=== PATIENT | female | born 1950 | race Caucasian/White ===

== ENCOUNTER 2017-05-21 17:33 | Emergency (ER) | payer MEDICARE ==
[2017-05-21 17:44] VITALS: BP 145/81
--- NOTE | 2017-05-21 18:03 | UC ---
Eye Complaint HPI - HPI Summary HPI Summary: Bruising and swelling this morning starting after 7 AM. - History of Current Complaint Chief Complaint: UCEye Stated Complaint: LEFT EYE BRUISING,HEADACHE Time Seen by Provider: 05/21/17 17:52 Hx Obtained From: Patient Hx Last Menstrual Period: n/a Onset/Duration: Sudden Onset - unaware of any trauma., Still Present, Worse Since - onset with more bruising. Timing: Constant Severity Initially: Mild Severity Currently: Mild Pain Intensity: 0 Location of Injury: Eye Lid (upper), Periorbital - on the medial aspect Aggravating Factor(s): Nothing Alleviating Factor(s): Nothing Associated Signs And Symptoms: Positive: Vision Impairment Left - just transient blurring that clears with blinking. - Risk Factors Penetrating Injury Risk Factor: Negative Globe Rupture Risk Factors: Negative Acute Glaucoma Risk Factors: Negative Optic Artery Occlusion Risk Factors: Heart Disease - Allergies/Home Medications Allergies/Adverse Reactions: Allergies Allergy/AdvReac Type Severity Reaction Status Date / Time Pseudoephedrine Allergy Severe racing Verified 05/21/17 17:37 [From Sudafed] heartbeat Tetanus Toxoid Allergy Severe rash and Verified 05/21/17 17:37 edema Home Medications: Home Medications Calcium Carbonate-Cholecalcife [Calcium 600 + D 600-200 mg-Unit] 1 tab PO BID [History Confirmed 05/21/17] Furosemide TAB* [Lasix TAB*] 20 mg PO DAILY 05/21/17 [History Confirmed 05/21/17 ] Multivitamins/Minerals TAB* [Thera M Plus TAB*] 1 tab PO DAILY 05/21/17 [ History Confirmed 05/21/17] PMH/Surg Hx/FS Hx/Imm Hx Endocrine History: Dyslipidemia Cardiovascular History: Hypertension Respiratory History: COPD Neurological History: TIA - Surgical History Surgical History: Yes Surgery Procedure, Year, and Place: Tonsilectomy, knee surgery, tubal, hysterectomy, eric - Family History Known Family History: Positive: Cardiac Disease, Hypertension, Diabetes - Social History Occupation: Retired Lives: With Family Alcohol Use: None Substance Use Type: None Smoking Status (MU): Former Smoker Type: Cigarettes Amount Used/How Often: 1 PPD Length of Time of Smoking/Using Tobacco: 46 Years Have You Smoked in the Last Year: No When Did the Patient Quit Smoking/Using Tobacco: 4 YRS - Immunization History Most Recent Influenza Vaccination: June 2015 Most Recent Pneumonia Vaccination: June 2015 Review of Systems Skin: Bruising Eyes: Blurred Vision Neurological: Headache - frontal headache early this afternoon that has resolved after tylenol and eating. Is Patient Immunocompromised?: No All Other Systems Reviewed And Are Negative: Yes Physical Exam Triage Information Reviewed: Yes Appearance: Well-Appearing, No Pain Distress, Obese Vital Signs: Initial Vital Signs Temp 98.1 F 05/21/17 17:38 Pulse 81 05/21/17 17:38 Resp 18 05/21/17 17:38 BP 145/81 05/21/17 17:38 Pulse Ox 100 05/21/17 17:38 Vital Signs Reviewed: Yes Eyes: Positive: Conjunctiva Clear, Other: - Bilateral cataracts. Fundiscopic exam normal. Discs sharp. ENT: Positive: Pharynx normal, TMs normal Neck exam: Normal Respiratory: Positive: Lungs clear, Decreased breath sounds Cardiovascular Exam: Normal Musculoskeletal Exam: Normal Neurological Exam: Normal Psychological Exam: Normal Skin: Positive: Other - bruising over left upper eyelid medially, tracking down onto the lower lid Eye Complaint Course/Dx - Differential Dx/Diagnosis Differential Diagnosis/HQI/PQRI: Conjunctivitis, Periorbital Cellulitis, Uveitis Provider Diagnoses: Ecchymosis eyelid Discharge - Discharge Plan Condition: Stable Disposition: HOME Patient Education Materials: Ecchymosis (ED), Hematoma (ED) Additional Instructions: Use ice packs to the area and rest. To the ER if worse.
== END 2017-05-21 18:19 | disposition home or self-care (01) ==
LOC: UCCORT 17:33
DX: R23.3 Spontaneous ecchymoses (principal); H53.8 Other visual disturbances; R51 Headache; E78.5 Hyperlipidemia, unspecified; I10 Essential (primary) hypertension; J44.9 Chronic obstructive pulmonary disease, unspecified; G45.9 Transient cerebral ischemic attack, unspecified; E66.9 Obesity, unspecified; Z88.7 Allergy status to serum and vaccine; Z88.8 Allergy status to other drugs, medicaments and biological substances; Z87.891 Personal history of nicotine dependence
CPT/HCPCS: 99212; G0463

== ENCOUNTER 2019-04-20 11:24 | Emergency (ER) | payer MEDICARE ==
[2019-04-20 12:17] VITALS: BP 133/76
--- NOTE | 2019-04-20 12:51 | UC ---
Lower Extremity/Ankle HPI - HPI Summary HPI Summary: Pt presents with c/o of worsening redness and pain on left mid anterior love. Pt states that she tripped walking up stairs in RV two weeks ago and hit left love on edge of step. Pt states that area has become increasingly red and tender over the last two weeks. - History of Current Complaint Chief Complaint: UCLowerExtremity Stated Complaint: LEFT LEG INJURY Time Seen by Provider: 04/20/19 12:06 Hx Obtained From: Patient Hx Last Menstrual Period: n/a ?: No Onset/Duration: Gradual Onset, Still Present, Worse Since - osnet Severity Initially: Mild Severity Currently: Moderate Pain Intensity: 5 Aggravating Factor(s): Standing, Ambulation Alleviating Factor(s): Nothing Able to Bear Weight: Yes - Risk Factors Gout Risk Factors: Obesity DVT Risk Factors: Negative Septic Arthritis Risk Factor: Negative - Allergies/Home Medications Allergies/Adverse Reactions: Allergies Allergy/AdvReac Type Severity Reaction Status Date / Time pseudoephedrine Allergy Tachycardia Verified 04/20/19 12:18 [From Sudafed] Tetanus Vaccines and Toxoid Allergy Rash Verified 04/20/19 12:18 Home Medications: Home Medications Calcium Carbonate [Calcium] 500 mg PO DAILY 04/20/19 [History Confirmed 04/20/19 ] Fluticasone-Salmeterol 500-50* [Advair Diskus 500-50*] 1 puff INH BID 04/20/19 [ History Confirmed 04/20/19] Ramipril 1.25 mg PO DAILY 04/20/19 [History Confirmed 04/20/19] Umeclidinium Petroleum [Incruse Ellipta] 62.5 mcg IH DAILY 04/20/19 [History Confirmed 04/20/19] PMH/Surg Hx/FS Hx/Imm Hx Previously Healthy: Yes Cardiovascular History: Cardiac Disease Respiratory History: COPD - Surgical History Surgical History: Yes Surgery Procedure, Year, and Place: Tonsilectomy, knee surgery, tubal, hysterectomy, eric - Family History Known Family History: Positive: Cardiac Disease, Hypertension, Diabetes - Social History Occupation: Retired Lives: With Family Alcohol Use: Occasionally Substance Use Type: None Smoking Status (MU): Former Smoker Type: Cigarettes Amount Used/How Often: 1 PPD Length of Time of Smoking/Using Tobacco: 46 Years Have You Smoked in the Last Year: No When Did the Patient Quit Smoking/Using Tobacco: 4 YRS - Immunization History Most Recent Influenza Vaccination: June 2015 Most Recent Pneumonia Vaccination: June 2015 Review of Systems All Other Systems Reviewed And Are Negative: Yes Constitutional: Positive: Negative Skin: Positive: Bruising, Other - erythema, tenderness, Eyes: Positive: Negative ENT: Positive: Negative Respiratory: Positive: Negative Cardiovascular: Positive: Negative Gastrointestinal: Positive: Negative Genitourinary: Positive: Negative Motor: Positive: Negative Neurovascular: Positive: Negative Musculoskeletal: Positive: Myalgia - left love Neurological: Positive: Negative Psychological: Positive: Negative Is Patient Immunocompromised?: No Physical Exam Triage Information Reviewed: Yes Appearance: Obese Vital Signs: Initial Vital Signs Temp 97.8 F 04/20/19 12:10 Pulse 85 04/20/19 12:10 Resp 16 04/20/19 12:10 BP 133/76 04/20/19 12:10 Pulse Ox 100 04/20/19 12:10 Vital Signs Reviewed: Yes Eye Exam: Normal ENT Exam: Normal ENT: Positive: Hearing grossly normal Dental Exam: Normal Neck exam: Normal Respiratory Exam: Normal Musculoskeletal Exam: Normal Neurological Exam: Normal Psychological Exam: Normal Skin Exam: Other - erythema ~ 6 cm in diamter, mild warmth greater than surroudning skin, healing bruise Diagnostics - Radiology No standard instances Radiology Interpretation Completed By: Radiologist - REPORT AND IMPRESSION: #. Negative for fracture or evidence for stress reaction. #. Normal articular alignment. #. Mild osteoarthritis at the medial joint compartment of the knee with associated chondrocalcinosis at the meniscus as well as subchondral sclerosis at the tibial plateau. #. Nonfocal moderate soft tissue edema. Negative for subcutaneous emphysema. Lower Extremity Course/Dx - Differential Dx/Diagnosis Differential Diagnosis/HQI/PQRI: Cellulitis, Contusion, Fracture (Closed) Provider Diagnosis: Cellulitis of left anterior lower leg Discharge - Sign-Out/Discharge Documenting (check all that apply): Patient Departure All imaging exams completed and their final reports reviewed: No Studies - Discharge Plan Condition: Stable Disposition: HOME Prescriptions: Cephalexin CAP* [Keflex 500 CAP*] 500 mg PO Q12H #10 cap Patient Education Materials: Cellulitis (ED) Referrals: Maria Alejandra Huertas PA [Primary Care Provider] - If Needed - Billing Disposition and Condition Condition: STABLE Disposition: Home
--- NOTE | 2019-04-22 16:15 | UC ---
- Progress Note Progress Note: Patient Name: ANDRZEJ GOLDSTEIN Medical Record#: [id number] Ordering Physician: Nicole Collins NP Acct.#: [id number] : 1950 Age: 68 Sex: F Location: [facility] Exam Date: 04/20/19 1227 ADM Status: REG ER Order Information: TIBIA FIBULA LEFT Accession Number: [id number] CPT: 42795 Indication: Anterior lateral LEFT lower leg pain post fall one week ago. Comparison: January 17, 2012 Technique: AP and lateral views LEFT lower leg. REPORT AND IMPRESSION: #. Negative for fracture or evidence for stress reaction. #. Normal articular alignment. #. Mild osteoarthritis at the medial joint compartment of the knee with associated chondrocalcinosis at the meniscus as well as subchondral sclerosis at the tibial plateau. #. Nonfocal moderate soft tissue edema. Negative for subcutaneous emphysema. <Electronically signed by Álvaro Monge MD in OV> 04/20/19 1257 Dictated By: Álvaro Monge MD Dictated Date/Time: 04/20/19 1257 Transcribed Date/Time: 04/20/19 1254 Copy to: CC:Nicole Collins NP; Maria Alejandra SHEPPARD; Alix Cutler MD Imaging - [facility] Imaging [facility]gent [facility] [address] [address] ph ([phone]) ph ([phone]) ph ([phone]) This report is only to be considered final once signed by the Provider(s) as displayed in the "<Electronically Signed by >" field (s). Absence of a signature indicates the report is in a draft status and still needs to be finalized. In the event this document was created by someone other than the signing Provider, the individual initiating the document will be listed in the "Entered by:" or "Dictated by:" whipple. 1 of 1 Course/Dx - Diagnoses Provider Diagnoses: Cellulitis of left anterior lower leg Discharge - Sign-Out/Discharge Documenting (check all that apply): Post-Discharge Follow Up All imaging exams completed and their final reports reviewed: Yes - Discharge Plan Condition: Stable Disposition: HOME Prescriptions: Cephalexin CAP* [Keflex 500 CAP*] 500 mg PO Q12H #10 cap Patient Education Materials: Cellulitis (ED) Referrals: Maria Alejandra Huertas PA [Primary Care Provider] - If Needed - Billing Disposition and Condition Condition: STABLE Disposition: Home
== END 2019-04-20 13:06 | disposition home or self-care (01) ==
LOC: UCCORT 11:24
DX: L03.116 Cellulitis of left lower limb (principal); J44.9 Chronic obstructive pulmonary disease, unspecified; Z87.891 Personal history of nicotine dependence
CPT/HCPCS: 99212; G0463

== ENCOUNTER 2019-10-08 11:14 | Emergency (ER) | payer MEDICARE ==
--- OUTSIDE RECORDS SUMMARY | 2019-10-08 11:57 | XMS REPORT | Continuity of Care Document ---
:1950 External Reference #:[id number] Author Name VALARIE Frazier (transmitted by agent of provider Ronnie Cazares) Address [address] [place] [address] Care Team Providers Name Role Phone Maria Alejandra Huertas RPA - Medical Care Team Information Vb Developer Mitchell Rehman M.D. - Internal Care Team Information Vb Developer [phone] Medicine Problems Active Problems Provider Date Obstructive sleep apnea syndrome VALARIE Frazier Onset: 12/12/2018 Note: Apap Coronary atherosclerosis Maria Alejandra Huertas PA Onset: 12/12/2018 Essential hypertension Maria Alejandra Huertas PA Onset: 12/12/2018 Chronic obstructive lung disease Maria Alejandra Huertas PA Onset: 12/12/2018 Hyperlipidemia Maria Alejandra Huertas PA Onset: 12/12/2018 H/O: TIA Maria Alejandra Huertas PA Onset: 12/12/2018 Gastroesophageal reflux disease Maria Alejandra Huertas PA Onset: 12/12/2018 Hyperglycemia Maria Alejandra Huertas PA Onset: 12/12/2018 Note: noted 2010 History of adenomatous polyp of colon Maria Alejandra Huertas PA Onset: 12/12/2018 Note: high grade 2014 Gastric hemorrhage Maria Alejandra Huertas PA Onset: 12/12/2018 Note: 01/2018 AVM Clostridium difficile infection Maria Alejandra Huertas PA Onset: 12/12/2018 Chronic diastolic heart failure Maria Alejandra Huertas PA Onset: 12/12/2018 Diverticulitis of sigmoid colon Maria Alejandra Huertas PA Onset: 03/18/2019 Note: 02/2019 Polyp of colon Maria Alejandra Huertas, PA Onset: 05/21/2019 Note: tubular adenomas 2019 Social History Type Date Description Comments Sex Unknown ETOH Use Consumed 2 glasses of wine per day in the past Tobacco Use Start: Unknown End: Patient is a former smoker Quit 2009 pack years Unknown 40 Smoking Status Reviewed: 09/17/19 Patient is a former smoker Quit 2010 pack years 39 Allergies, Adverse Reactions, Alerts Active Allergies Reaction Severity Comments Date Tetanus 12/12/2018 Pseudoephedrine 12/12/2018 Sudafed 12/12/2018 Lipitor 12/12/2018 Adhesive 12/12/2018 Medications Active Medications SIG Qnty Indications Ordering Date Provider Amoxicillin/Clavulan one pill with food 20tabs K57.32 Maikel 09/17/2019 ate Potassium twice a day MD Ben 875-125mg Tablets Flagyl 1 tab by mouth 15tabs K57.32 Maikel 09/17/2019 500mg Tablets every 8 hours MD Ben Oxygen Order Portable system R09.02 Maikel 07/11/2019 requiring tank MD Ben delivery 4 liters via nc while ambulatory 3 liters via nc while sleeping Order Oxygen @ 3L/min, Maikel 06/04/2019 continuous MD Ben Fluticasone 2 sprays to each Maikel 12/12/2018 Propionate nare every day MD Ben 50mcg/Act Suspension Ramipril Take 1 Capsule By 90caps I10 Maikel 12/12/2018 1.25mg Mouth Every Day MD Ben Capsules Oxygen Thru [facility] @ 3 liters via NC, Maikel 12/12/2018 Homecare continuous And MD Ben with c-pap Albuterol Sulfate 1 application every 75ml Maikel 12/12/2018 4 hours as needed MD Ben (2.5mg/3ML) 0.083% Nebulizer Aspirin Ec Low Dose 1 by mouth every 30tabs Maikel 12/12/2018 day MD Ben 81mg Tablets Vitamin C 1 by mouth every Maikel 12/12/2018 1000mg day MD Ben Tablets Calcium 500 +D 1 by mouth twice a 180tabs Maikel 12/12/2018 day MD Ben 950-224qv-Djax Tablets Pantoprazole Sodium Take 1 Tablet By 180tabs Maikel 12/12/2018 Mouth Twice Daily MD Ben 40mg Tablets Montelukast Sodium 1 by mouth every 90tabs Maikel 12/12/2018 day MD Ben 10mg Tablets Pravastatin Sodium Take 1 Tablet By 90tabs Maikel 12/12/2018 Mouth Every Evening MD Ben 40mg Tablets Furosemide 1 by mouth every Maikel 12/12/2018 20mg day MD Ben Tablets Daliresp 1 by mouth every Mitchell Rehman, 500mcg day M.D. Tablets Incruse Ellipta inhale 1 puff by 90units [place] mouth every 24 MD Ben 62.5mcg/Inh Aerosol hours Proair HFA 1-2 inhalations 8.500gm Maikel every 4-6 hours as MD Ben 108(90Base) mcg/Act needed Aerosol History Medications Azithromycin 2 tabs by 11tabs N83.201 Maikel Contreras, 06/18/2019 - 250mg mouth today 07/01/2019 Tablets then 1 tab by mouth daily Immunizations Description No Information Available Vital Signs Date Vital Result Comment 09/17/2019 2:02pm Height 62.5 inches 5'2.50" Weight 227.12 lb Heart Rate 96 /min BP Systolic Sitting 136 mmHg BP Diastolic Sitting 72 mmHg Body Temperature 98.5 F O2 % BldC Oximetry 97 % BMI (Body Mass Index) 40.9 kg/m2 07/11/2019 9:48am Weight 221.12 lb Heart Rate 80 /min BP Systolic 118 mmHg BP Diastolic 80 mmHg Body Temperature 98.8 F O2 % BldC Oximetry 98 % Results Description No Information Available Procedures Date Code Description Status 05/13/2019 76513092 Colonoscopy Completed 10/30/2018 [id number] Mammogram Completed 04/28/2018 [id number] Mammogram Completed Medical Devices Description No Information Available Encounters Type Date Location Provider Dx Diagnosis Office Visit 07/11/2019 [facility] Maria Alejandra N83.201 Unspecified ovarian 9:30a [place] cyst, right side J44.9 Chronic obstructive pulmonary disease, unspecified Office Visit 06/18/2019 1:27p [facility] Maria Alejandra J44.0 Chr obstructive Walk-[place] pulmon disease [facility] with (acute) lower resp infct R09.1 Pleurisy Office Visit 05/17/2019 9:30a [facility] Primary Maria Alejandra J44.9 Chronic [place] obstructive pulmonary disease, unspecified N83.201 Unspecified ovarian cyst, right side K57.32 Dvtrcli of lg int w/o perforation or abscess w/o bleeding Office Visit 03/19/2019 1:00p [facility] Primary Maria Alejandra K57.32 Dvtrcli of lg int Care [place] w/o perforation or abscess w/o bleeding N83.201 Unspecified ovarian cyst, right side Assessments Date Code Description Provider 09/17/2019 K57.32 Diverticulitis of large intestine without Maria Alejandra [place] perforation or abscess without bleeding 07/11/2019 N83.201 Unspecified ovarian cyst, right side Maria Alejandra [place] 07/11/2019 J44.9 Chronic obstructive pulmonary disease, Maria Alejandra [place] unspecified 06/18/2019 J44.0 Chronic obstructive pulmonary disease with Maria Alejandra [place] (acute) lower respiratory infection 06/18/2019 R09.1 Pleurisy Maria Alejandra [place] 05/17/2019 J44.9 Chronic obstructive pulmonary disease, Maria Alejandra [place] unspecified 05/17/2019 N83.201 Unspecified ovarian cyst, right side Maria Alejandra [place] 05/17/2019 K57.32 Diverticulitis of large intestine without Maria Alejandra [place] perforation or abs 03/19/2019 K57.32 Diverticulitis of large intestine without Maria Alejandra [place] perforation or abs 03/19/2019 N83.201 Unspecified ovarian cyst, right side Maria Alejandra [place] Plan of Treatment Future Appointment(s):01/10/2020 10:00 am - Maria Alejandra Huertas PA at [facility] Primary Care09/17/2019 - Maria Alejandra [place], PAK57.32 Diverticulitis of large intestine without perforation or abscess without bleedingNew Medication:Amoxicillin/ Clavulanate Potassium 875-125 mg - one pill with food twice a dayFlagyl 500 mg - 1 tab by mouth every 8 hoursNew Labs:CBC W/Auto Diff, Ordered: 09/17/19 Functional Status Functional Condition Comment Date Status Cpap Active Nebulizer Active Oxygen Active Mental Status Description No Information Available Referrals Description No Information Available
[2019-10-08 12:26] VITALS: BP 141/80
--- NOTE | 2019-10-08 12:44 | UC ---
Respiratory Complaint HPI - HPI Summary HPI Summary: 69-year-old female with significant history of COPD presents with 4 day history of productive cough and increased shortness of breath. States cough has been productive for clear sputum. States she has had to use her rescue inhaler 2-3 times a day. Patient is oxygen dependent wearing 4 L/m at all times. States 2 weeks ago she completed a course of Cipro and Flagyl for a flareup of her diverticulitis. Denies fever, chills, nasal congestion, sore throat, chest pain , palpitations, abdominal pain, nausea, or vomiting. - History of Current Complaint Chief Complaint: UCRespiratory Stated Complaint: CONGESTON/COUGH Time Seen by Provider: 10/08/19 12:35 Hx Obtained From: Patient Hx Last Menstrual Period: n/a Pain Intensity: 2 - Allergies/Home Medications Allergies/Adverse Reactions: Allergies Allergy/AdvReac Type Severity Reaction Status Date / Time pseudoephedrine Allergy Tachycardia Verified 10/08/19 12:17 [From Sudafed] Tetanus Vaccines and Toxoid Allergy Rash Verified 10/08/19 12:17 PMH/Surg Hx/FS Hx/Imm Hx Endocrine History: Dyslipidemia Cardiovascular History: Hypertension Respiratory History: COPD GI/ History: Gastroesophageal Reflux - Surgical History Surgical History: Yes Surgery Procedure, Year, and Place: Tonsilectomy, knee surgery, tubal, hysterectomy, eric - Family History Known Family History: Positive: Cardiac Disease, Hypertension, Diabetes - Social History Occupation: Retired Lives: With Family Alcohol Use: Weekly Substance Use Type: None Smoking Status (MU): Former Smoker Type: Cigarettes Amount Used/How Often: 1 PPD Length of Time of Smoking/Using Tobacco: 46 Years Have You Smoked in the Last Year: No When Did the Patient Quit Smoking/Using Tobacco: 4 YRS - Immunization History Most Recent Influenza Vaccination: June 2015 Most Recent Pneumonia Vaccination: June 2015 Review of Systems All Other Systems Reviewed And Are Negative: Yes Constitutional: Negative: Fever, Chills Eyes: Negative: Drainage, Eye Redness ENT: Negative: Sore Throat, Ear Ache, Nasal Discharge, Sinus Congestion, Sinus Pain/Tenderness Respiratory: Positive: Shortness Of Breath, Cough Cardiovascular: Negative: Palpitations, Chest Pain Gastrointestinal: Negative: Abdominal Pain, Vomiting, Nausea Genitourinary: Positive: Negative Musculoskeletal: Positive: Negative Neurological: Positive: Negative Is Patient Immunocompromised?: No Physical Exam - Summary Physical Exam Summary: GENERAL APPEARANCE: Well developed, well nourished, alert and cooperative, and appears to be in no acute distress. EYES: Conjunctiva clear. No drainage. EARS: External auditory canals and tympanic membranes clear, hearing grossly intact. NOSE: No nasal discharge. THROAT: Pharynx normal No tonsilar inflammation, swelling, exudate, or lesions. Uvula midline. NECK: Neck supple, non-tender without lymphadenopathy. CARDIAC: Normal S1 and S2. No S3, S4 or murmurs. Rhythm is regular. There is no peripheral edema, cyanosis or pallor. Extremities are warm and well perfused. Capillary refill is less than 2 seconds. Peripheral pulses intact. LUNGS: Clear to auscultation without rales, rhonchi, wheezing or diminished breath sounds. ABDOMEN: Positive bowel sounds. Soft, nondistended, nontender. No guarding or rebound. No masses or hepatosplenomegally. MUSKULOSKELETAL: ROM intact to all extremities. No joint erythema or tenderness. Normal muscular development. Normal gait. SKIN: Skin normal color, texture and turgor with no lesions or eruptions. Triage Information Reviewed: Yes Vital Signs: Initial Vital Signs Temp 98.7 F 10/08/19 12:22 Pulse 90 10/08/19 12:22 Resp 22 10/08/19 12:22 BP 141/80 10/08/19 12:22 Pulse Ox 100 10/08/19 12:22 Vital Signs Reviewed: Yes Respiratory Course/Dx - Course Course Of Treatment: 69-year-old female with significant history of COPD presents with 4 day history of productive cough and increased shortness of breath. States cough has been productive for clear sputum. States she has had to use her rescue inhaler 2-3 times a day. Patient is oxygen dependent wearing 4 L/m at all times. States 2 weeks ago she completed a course of Cipro and Flagyl for a flareup of her diverticulitis. Denies fever, chills, nasal congestion, sore throat, chest pain , palpitations, abdominal pain, nausea, or vomiting. Afebrile. Hypertensive otherwise vital signs stable. Patient had mildly diminished bilateral breath sounds without wheezing, rales, or rhonchi, productive cough for clear sputum, and otherwise unremarkable exam. With the patient's significant history of COPD and frequent bronchitis will place her on Augmentin 875 mg twice daily 10 days and have her continue with symptomatic treatment. She is to follow up with her primary care provider in 3 days if symptoms do not improve. Anticipatory guidance and warning symptoms were reviewed with the patient. Verbalizes understanding and agrees with plan of care. - Differential Dx/Diagnosis Differential Diagnosis/HQI/PQRI: Bronchitis, Exacerbation Of COPD, Lower Resp Infection Provider Diagnosis: Acute bronchitis, COPD (chronic obstructive pulmonary disease) Discharge ED - Sign-Out/Discharge Documenting (check all that apply): Patient Departure All imaging exams completed and their final reports reviewed: No Studies - Discharge Plan Condition: Stable Disposition: HOME Prescriptions: Amoxicillin/Clavulanate TAB* [Augmentin TAB 875*] 875 mg PO BID #20 tab Patient Education Materials: Acute Bronchitis (ED), COPD (Chronic Obstructive Pulmonary Disease) (ED) Referrals: Maria Alejandra Huertas PA [Primary Care Provider] - 3 Days (If no improvement.) Additional Instructions: Your history and exam are consistent with acute bronchitis which is most often caused by a viral infection however with your history of COPD and frequent bronchitis we will start you on an antibiotic. Start Augmentin 875 mg twice a day for 10 days. Take with food to avoid upset stomach. Be sure to complete the entire course even if feeling better. Continue to use your inhalers as directed. Get plenty of rest. Drink plenty of fluids. Run a cool mist humidifer in your room at night. Take over the counter acetaminophen (Tylenol) or ibuprofen (Advil, Motrin) according to directions as needed for pain or fever. Follow up with your primary care provider in 3 days if symptoms do not improve. Seek immediate medical attention in the emergency room if you have fever greater than 100.5 F despite taking acetaminophen or ibuprofen, have chest pain , difficulty breathing, or have any worsening of symptoms. - Billing Disposition and Condition Condition: STABLE Disposition: Home - Attestation Statements Provider Attestation: This patient was not seen by me. I was available for consult. Chart reviewed [facility]
== END 2019-10-08 13:04 | disposition home or self-care (01) ==
LOC: UCCORT 11:14
DX: J44.0 Chronic obstructive pulmonary disease with (acute) lower respiratory infection (principal); J20.9 Acute bronchitis, unspecified; Z87.891 Personal history of nicotine dependence; Z88.8 Allergy status to other drugs, medicaments and biological substances; Z88.7 Allergy status to serum and vaccine
CPT/HCPCS: 99212; G0463

== ENCOUNTER 2019-12-03 09:05 | Emergency (ER) | payer MEDICARE ==
--- OUTSIDE RECORDS SUMMARY | 2019-12-03 09:43 | XMS REPORT | Continuity of Care Document ---
:1950 External Reference #:[id number] Author Name Shelton Hoffman PA (transmitted by agent of provider Joselyn Mosley) Address [address], [address] [place] [address] Problems Active Problems Provider Date Obstructive sleep apnea of adult Maria Alejandra Huertas [facility] Onset: 04/10/2014 Note: c-pap Coronary arteriosclerosis Gaetano Butcher M.D., [facility] Onset: 07/18/2013 Benign essential hypertension Gaetano Butcher M.D., [facility] Onset: 2012 Pure hypercholesterolemia Gaetano Butcher M.D., [facility] Onset: 07/18/2013 Chronic obstructive lung disease Gaetano Butcher M.D., [facility] Onset: 07/18 H/O: TIA Maria Alejandra Huertas [facility] Onset: 02/08/2014 Impaired glucose tolerance Maria Alejandra Huertas [facility] Onset: 02/08/2014 Note: noted 2010 Gastroesophageal reflux disease Lina Goodwin FNP Onset: 08/12/2011 Hyperlipidemia Gaetano Butcher M.D., Onset: 03/08/2016 [facility] History of adenomatous polyp of colon Maria Alejandra Huertas [facility] Onset: 2015 Note: hi grade, tubular 2013 Gastric hemorrhage Maria Alejandra Huertas 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 Onset: 02/14/2018 Chronic diastolic heart failure Gaetano Butcher M.D., Onset: 03/03/2018 [facility] Atherosclerotic heart disease of GuadalupeGaetano M.D., Onset: 03/03/2018 galena coronary artery with [facility] unspecified angina pectoris Social History Type Date Description Comments Sex Unknown Cigarette Use Pack Years - 40 Tobacco Use Start: Unknown End: Quit Unknown Smoking Status Reviewed: 11/20/19 Quit Smokeless Tobacco Never Used Smokeless Tobacco ETOH Use Consumes 2 glasses of wine per week Tobacco Use Start: Unknown End: Patient is a former smoker QUIT 2009 Unknown Recreational Drug Use Denies Drug Use Allergies, Adverse Reactions, Alerts Active Allergies Reaction Severity Comments Date Tetanus 10/10/2008 Pseudoephedrine 06/15/2016 Tetanus Toxoid Vaccine, Inactivated Swelling Rash 11/07/2019 Sudafed 10/10/2008 Lipitor MYALGIAS 02/28/2015 Adhesives contact dermatitis 10/01/2015 Medications Active Medications SIG Qnty Indications Ordering Date Provider Ramipril 1 cap by mouth 90caps R03.0 Riacrdo Cortesshan, 09/01/2018 1.25mg every day M.D. Capsules Fluticasone [place] 2 Sprays In 48units CortesBhupendra alejandre, 07/31/2018 Propionate Each Nostril Once M.D. 50mcg/Act Daily Suspension Incruse Ellipta Inhale 1 30units CortesBhupendra alejandre, 07/05/2018 Inhalation Every M.D. 62.5mcg/Inh Aerosol Day Duoneb as needed Unknown 02/10/2018 0.5-2.5(3)mg/3ML Solution Furosemide Take 1 Tablet By 60tabs I50.32 Nicole Cristobal 01/23/2018 20mg Mouth Every Day Nancy, MSN, Tablets With Second Tablet BURR FILER as Needed For Edema Advair Diskus take 1 puff twice 3month J44.9 Mitchell Rehman MD 09/29/2017 daily. rinse mouth 500-50mcg/Dose after use. Aerosol Probiotic Daily 1 by mouth Twice 60caps Eduardo Avila, 07/02/2016 Daily DO Capsules Nebulizer Diagnosis: COPD Mitchell Rehman MD 03/02/2016 Compressor/Dualfilte r/7' Tubing/Aerosol T/Mthpiece Kit Daliresp take one tablet by 90tabs Mitchell Rehman MD 09/23/2015 500mcg mouth every day Tablets Proair HFA inhale two puffs 25.5gm CortesBhupendra alejandre, 08/09/2015 by mouth every 4 M.D. 108(90Base) mcg/Act hours as needed Aerosol Oxygen oxygen @ 4 liters Bhupendra Cortes, 07/28/2015 at all times M.D. (except when walking outside may raise to 5 liters) Pravastatin Sodium Take One Tablet By 90tabs E78.0 Bhupendra Cortes, 2014 Mouth Every Day M.D. 40mg Tablets Montelukast Sodium Take 1 Tablet By 90tabs Bhupendra Cortes, 02/03/2015 Mouth Every Day M.D. 10mg Tablets Calcium 500/D po daily per pt Nicole Cristobal CHAYITO Cruz, [phone] BURR FILER Chewtabs Pantoprazole Sodium 1 po daily 180tabs Bhupendra Cortes, M.D. 40mg Tablets DR Vitamin C 1 by mouth every Unknown 1000mg day Tablets Aspir-81 1 by mouth every Unknown 81mg Tablets day DR Vitamin B12 1 by mouth once a Unknown 1000mcg day Tablets ER Multi Vitamin 1 by mouth every Unknown day Tablets Benefiber 1 tablespoon with Unknown Powder large glass of water every day Prednisone tapering dose 3 Unknown 10mg days of 3 daily Tablets then 3 days of 2 and then 3 days of 1 Multivitamin Adult 1 by mouth every Unknown day Chewtabs Immunizations CPT Code Status Date Vaccine Reaction Lot # U-Flu Given 06/09/2018 Influenza,Unspecified 35651 Given 06/09/2018 Influenza High Dose 76468 Given 06/03/2017 Influenza High Dose received at [facility]. [address] Given 06/03/2017 Influenza High Dose Q2038 Given 06/20/2016 Influenza Vaccine (Fluzone) Age 3 And Older 98987 Given 06/27/2015 Pneumococcal Conjugate [id number] Vaccine 13 Valent For Intramuscular Use Q2038 Given 06/13/2015 Influenza Vaccine (Fluzone) [id number] Age 3 And Older 62484 Given 06/28/2014 flu vaccination 34108 Given 07/13/2013 flu vaccination 32496 Given 06/01/2012 flu vaccination 31355 Given 06/28/2011 flu vaccination 91741 Given 06/30/2010 flu vaccination 59680 Given 09/23/2009 H1N1 Immuniation Adminstration 54754 Given 07/15/2009 flu vaccination 91268 Given 07/09/2008 Pneumovax Injection 62182 Given 07/09/2008 flu vaccination 16742 Given Unknown Influenza Virus Vaccine, Quadrivalent, 36 Mos+, .5ML Vital Signs Date Vital Result Comment 11/20/2019 11:17am BP Systolic Sitting Left Arm 147 mmHg BP Diastolic Sitting Left Arm 98 mmHg Body Temperature 97.0 F Heart Rate 86 /min Respiratory Rate 16 /min Height 65 inches 5'5" Weight 215.00 lb Pain Level 8 abdominal pain BMI (Body Mass Index) 35.8 kg/m2 BSA (Body Surface Area) 2.04 m2 [place] body weight in kilograms 57 kg O2 % BldC Oximetry 98 % 3 Liters 11/07/2019 12:00pm BP Systolic 134 mmHg BP Diastolic 80 mmHg Body Temperature 98.4 F Heart Rate 73 /min Respiratory Rate 16 /min O2 % BldC Oximetry 98 % Results Test Acquired Facility Test Result H/L Range Note Date Lymphocytes # 11/07/2019 N2N/CCD Import Lymphocytes # 1.28 1.0-4.0 Bld Auto (Auto) Monocytes # Bld 11/07/2019 N2N/CCD Import Monocytes # (Auto) 0.55 0.3- 0.9 Auto Eosinophil # 11/07/2019 N2N/CCD Import Eosinophils # 0.20 0.0-0.5 Bld Auto (Auto) Basophils # Bld 11/07/2019 N2N/CCD Import Basophils # (Auto) 0.03 0.0- 0.1 Auto Imm 11/07/2019 N2N/CCD Import Immature 0.02 Granulocytes # Granulocyte # Bld Auto (Auto) nRBC # Bld Auto 11/07/2019 N2N/CCD Import Nucleated RBC 0.00 Absolute Count (auto) Glucose 11/07/2019 N2N/CCD Import Glucose Screen 104 74-106 SerPl-mCnc BUN SerPl-mCnc 11/07/2019 N2N/CCD Import Blood Urea 6 Low 7-18 Nitrogen Creat 11/07/2019 N2N/CCD Import Creatinine 0.7 0.6-1.3 SerPl-mCnc GFR/Bsa 11/07/2019 N2N/CCD Import Estimated GFR >60 >60 pred.non black (Non- SerPl [place] MDRD-ArVRat GFR/Bsa 11/07/2019 N2N/CCD Import Estimated GFR >60 >60 pred.black () SerPl MDRD-ArVRat BUN/Creat SerPl 11/07/2019 N2N/CCD Import BUN/Creatinine 8.5 Ratio Sodium 11/07/2019 N2N/CCD Import Sodium Level 137 136-145 SerPl-sCnc Potassium 11/07/2019 N2N/CCD Import Potassium Level 3.7 3.5-5.1 SerPl-sCnc Chloride 11/07/2019 N2N/CCD Import Chloride Level 102 98-107 SerPl-sCnc Co2 SerPl-sCnc 11/07/2019 N2N/CCD Import Carbon Dioxide 34 High 21-32 Level Anion Gap 11/07/2019 N2N/CCD Import Anion Gap 1 Low 8-16 SerPl-sCnc Calcium 11/07/2019 N2N/CCD Import Calcium Level 9.0 8.5-10.1 SerPl-mCnc WBC # XXX Auto 11/07/2019 N2N/CCD Import White Blood Count 6.1 3.1-10.7 RBC # Bld Auto 11/07/2019 N2N/CCD Import Red Blood Count 3.97 3.90-5.40 Hgb Bld-mCnc 11/07/2019 N2N/CCD Import Hemoglobin 10.3 Low 11.6-15.8 Hct VFr Bld 11/07/2019 N2N/CCD Import Hematocrit 35.1 Low 36.0-46.1 Auto MCV RBC Auto 11/07/2019 N2N/CCD Import Mean Corpuscular 88.4 80.9-99.0 Volume MCH RBC Qn Auto 11/07/2019 N2N/CCD Import Mean Corpuscular 25.9 25.9- 32.7 Hemoglobin MCHC RBC 11/07/2019 N2N/CCD Import Mean Corpuscular 29.3 Low 30.8-34.3 Auto-mCnc Hemoglobin Concent Platelet # Bld 11/07/2019 N2N/CCD Import Platelet Count 292 155-360 Auto RDW RBC Auto 11/07/2019 N2N/CCD Import Red Cell 43.8 36-47 Distribution Width RDW RBC 11/07/2019 N2N/CCD Import RDW Coefficient of 13.4 11.7-14.4 Auto-Rto Variation PMV Bld Auto 11/07/2019 N2N/CCD Import Mean Platelet 11.2 8.9-12.4 Volume Neutrophils/ronnie 11/07/2019 N2N/CCD Import Neutrophils (%) 65.8 40.4- 72.8 k NFr Bld Auto (Auto) Lymphocytes/ronnie 11/07/2019 N2N/CCD Import Lymphocytes (%) 21.1 20.0- 42.0 k NFr Bld Auto (Auto) Monocytes/leuk 11/07/2019 N2N/CCD Import Monocytes (%) 9.0 4.3-13.2 NFr Bld Auto (Auto) Eosinophil/leuk 11/07/2019 N2N/CCD Import Eosinophils (%) 3.3 0.0-6.6 NFr Bld Auto (Auto) Basophils/leuk 11/07/2019 N2N/CCD Import Basophils (%) 0.5 0.0-1.1 NFr Bld Auto (Auto) Imm 11/07/2019 N2N/CCD Import Immature 0.3 0.0-5.0 Granulocytes/le Granulocyte % uk NFr Bld Auto (Auto) nRBC/100 WBC 11/07/2019 N2N/CCD Import Nucleated Red 0.0 < 10/ 100 Bld Auto-Rto Blood Cells % WBC (auto) Neutrophils # 11/07/2019 N2N/CCD Import Neutrophils # 4.00 1.8-7.0 Bld Auto (Auto) Inr PPP 11/05/2019 N2N/CCD Import Inr International 1.0 0.9-1.1 Normalized Ratio Prot SerPl-mCnc 11/05/2019 N2N/CCD Import Total Protein 7.4 6.4-8.2 Albumin 11/05/2019 N2N/CCD Import Albumin 2.9 Low 3.4-5.0 SerPl-mCnc Globulin Ser 11/05/2019 N2N/CCD Import Globulin 4.5 High 1.9-4.3 Calc-mCnc Albumin/Glob 11/05/2019 N2N/CCD Import Albumin/Globulin 0.6 SerPl Ratio Bilirub 11/05/2019 N2N/CCD Import Total Bilirubin 0.2 0.2-1.0 SerPl-mCnc Ast SerPl-cCnc 11/05/2019 N2N/CCD Import Aspartate Amino 9 Low 15-37 Transf (Ast/Sgot) Alt SerPl-cCnc 11/05/2019 N2N/CCD Import Alanine 27 12-78 Aminotransferase (Alt/SGPT) Alp SerPl-cCnc 11/05/2019 N2N/CCD Import Alkaline 65 45-117 Phosphatase Lipase 11/05/2019 N2N/CCD Import Lipase 44 Low 56-289 SerPl-cCnc Lactate 11/05/2019 N2N/CCD Import Lactic Acid Level 0.8 0.4-1.9 SerPl-sCnc Troponin I 11/05/2019 N2N/CCD Import Troponin I < 0.015 SerPl-mCnc Color Ur Auto 11/05/2019 N2N/CCD Import Urine Color Light-Yellow Yellow Appearance Ur 11/05/2019 N2N/CCD Import Urine Clarity Clear Clear Glucose Ur Ql 11/05/2019 N2N/CCD Import Urine Glucose (Ua) Negative Negative Strip.auto Bilirub Ur Ql 11/05/2019 N2N/CCD Import Urine Bilirubin Negative Negative Strip.auto Ketones Ur Ql 11/05/2019 N2N/CCD Import Urine Ketones Negative Negative Strip.auto Sp Gr Ur 11/05/2019 N2N/CCD Import Urine Specific 1.007 Low 1.010-1.03 Refractometry [place] 0 Hgb Ur Ql 11/05/2019 N2N/CCD Import Urine Blood Negative Negative Strip.auto pH Ur 11/05/2019 N2N/CCD Import Urine pH 5.0 Low 6.5-7.5 Strip.auto Prot Ur Ql 11/05/2019 N2N/CCD Import Urine Protein Negative Negative Strip.auto Urobilinogen Ur 11/05/2019 N2N/CCD Import Urine Urobilinogen < 2.0 < 2.0 Ql Strip.auto Nitrite Ur Ql 11/05/2019 N2N/CCD Import Urine Nitrite Negative Negative Strip.auto Leukocyte 11/05/2019 N2N/CCD Import Urine Leukocyte Negative Negative esterase Ur Ql Esterase Strip.auto Prothrombin 11/05/2019 N2N/CCD Import Prothrombin Time 13.3 12.0-14.4 time Inhaled O2 10/13/2019 N2N/CCD Import FiO2 21 21-100 concentration Unloinc 10/13/2019 N2N/CCD Import Blood Gas Position Sitting Up In Bed Unloinc 10/13/2019 N2N/CCD Import Blood Gas Patient Ambulating Status Heart rate 10/13/2019 N2N/CCD Import Blood Gas Patient 116 PulseOx Heart Rate Unloinc 10/13/2019 N2N/CCD Import Oximetry Flow 4 Oxygen Delivery Device N/C SaO2 % BldA 10/13/2019 N2N/CCD Import Oxygen 90 Low 93-98 PulseOx Saturation (Pulse Oximetry) Anisocytosis Bld 10/11/2019 N2N/CCD Import Anisocytosis 0-1+ Ql Smear Platelet Bld Ql 10/11/2019 N2N/CCD Import Platelet Normal Smear Estimate Monocytes/leuk 10/11/2019 N2N/CCD Import Monocytes % 9 0-10 NFr Bld Manual Variant 10/11/2019 N2N/CCD Import Atypical 2 0-7 Lymphs/leuk NFr Lymphocytes % Bld Manual Lymphocytes/leuk 10/11/2019 N2N/CCD Import Lymphocytes % 6 Low 20-42 NFr Bld Manual Neuts Seg/leuk 10/11/2019 N2N/CCD Import Neutrophils % 75 High 33-73 NFr Bld Manual Neuts Band/leuk 10/11/2019 N2N/CCD Import Band 8 0-8 NFr Bld Manual Neutrophils % Total Cells 10/11/2019 N2N/CCD Import Differential 100 Counted Bld Total Cells Counted Unloinc 10/11/2019 N2N/CCD Import Manual Slide Diff Ordered Review (Hematology) Bacteria XXX 10/10/2019 N2N/CCD Import Respiratory Respiratory Resp Cult Culture Ava Bacteria Bld 10/10/2019 N2N/CCD Import Aerobic Blood No Growth: Aerobe Cult Culture Final Report Bacteria Bld 10/10/2019 N2N/CCD Import Anaerobic Blood No Growth: Anaerobe Cult Culture Final Report RBC #/area UrnS 10/10/2019 N2N/CCD Import Urine RBC 0-2 0-2 HPF WBC #/area UrnS 10/10/2019 N2N/CCD Import Urine WBC 0-2 0-7 HPF Epi Cells UrnS 10/10/2019 N2N/CCD Import Urine Moderate None Seen Ql Micro Epithelial Cells Bacteria UrnS Ql 10/10/2019 N2N/CCD Import Urine Bacteria Few None Seen Micro L pneumo1 Ag Ur 10/10/2019 N2N/CCD Import Legionella Negative Negative Ql Ia Antigen (Lab) Fluav Ag XXX Ql 10/10/2019 N2N/CCD Import Influenza Type Negative ( Negative) A Antigen Flubv Ag XXX Ql 10/10/2019 N2N/CCD Import Influenza Type Negative ( Negative) B Antigen Procedures Date Code Description Status 05/21/2019 [id number] Colonoscopy Completed 10/30/2018 [id number] Mammogram Completed 04/28/2018 [id number] Mammogram Completed 12/13/2014 [id number] Colonoscopy Completed 05/24/2014 [id number] Colonoscopy Completed 09/12/2009 [id number] Bone Mineral Density Test Completed 07/07/2004 [id number] Colonoscopy Completed Medical Devices Description No Information Available Encounters Type Date Location Provider Dx Diagnosis Office Visit 10/17/2019 Pulmonology Je Torres MD J44.9 Chronic obstructive 10:30a pulmonary disease, unspecified G47.33 Obstructive sleep apnea (adult) (pediatric) J96.11 Chronic respiratory failure with hypoxia R91.1 Solitary pulmonary nodule Office Visit 07/04/2019 1:15p GI Yayo Ace MD K57.30 Dvrtclos of lg int w/o perforation or abscess w/o bleeding K63.5 Polyp of colon D50.9 Iron deficiency anemia, unspecified K29.50 Unspecified chronic gastritis without bleeding Assessments Date Code Description Provider 11/07/2019 R10.32 Left lower quadrant pain Salanger, Sarah, PHOTO SPECIALIST 11/07/2019 J96.11 Chronic respiratory failure with hypoxia Salanger, Sarah, PHOTO SPECIALIST 11/07/2019 K59.00 Constipation, unspecified Salanger, Sarah, PHOTO SPECIALIST 11/07/2019 K57.92 Diverticulitis of intestine, part unspecified, Salanger, Sarah, PHOTO SPECIALIST without perforation or abscess without bleeding 11/06/2019 K57.92 Diverticulitis of intestine, part unspecified, Vicki Cid MD without perforation or abscess without bleeding 11/06/2019 R10.32 Left lower quadrant pain Salanger, Sarah, PHOTO SPECIALIST 11/06/2019 R93.5 Abnormal findings on diagnostic imaging of Vicki Cid MD other abdominal regions, including retroperitoneum 11/06/2019 K57.90 Diverticulosis of intestine, part unspecified, Salanger, Sarah, PHOTO SPECIALIST without perforation or abscess without bleeding 11/06/2019 R10.9 Unspecified abdominal pain Vicki Cid MD 11/06/2019 J96.11 Chronic respiratory failure with hypoxia Salanger, Sarah, PHOTO SPECIALIST 11/06/2019 Z87.19 Personal history of other diseases of the Vicki Cid MD digestive system 11/06/2019 K59.00 Constipation, unspecified Salanger, Sarah, PHOTO SPECIALIST 11/05/2019 R10.32 Left lower quadrant pain Salanger, Sarah, PHOTO SPECIALIST 11/05/2019 K57.90 Diverticulosis of intestine, part unspecified, Salanger, Sarah, PHOTO SPECIALIST without perforation or abscess without bleeding 11/05/2019 J96.11 Chronic respiratory failure with hypoxia Salanger, Sarah, PHOTO SPECIALIST 11/05/2019 K59.00 Constipation, unspecified Salanger, Sarah, PHOTO SPECIALIST 10/17/2019 J44.9 Chronic obstructive pulmonary disease, Je Torres MD unspecified 10/17/2019 G47.33 Obstructive sleep apnea (adult) (pediatric) Je Torres MD 10/17/2019 J96.11 Chronic respiratory failure with hypoxia Je Torres MD 10/17/2019 R91.1 Solitary pulmonary nodule Je Torres MD 10/13/2019 J44.1 Chronic obstructive pulmonary disease with Jaiden Bo MD (acute) exacerbation 10/13/2019 J96.21 Acute and chronic respiratory failure with Jaiden Bo MD hypoxia 10/13/2019 J06.9 Acute upper respiratory infection, unspecified Jaiden Bo MD 10/13/2019 R00.0 Tachycardia, unspecified Jaiden Bo MD 10/12/2019 J44.1 Chronic obstructive pulmonary disease with Jaiden Bo MD (acute) exacerbation 10/12/2019 J96.21 Acute and chronic respiratory failure with Jaiden Bo MD hypoxia 10/12/2019 J06.9 Acute upper respiratory infection, unspecified Jaiden Bo MD 10/12/2019 R00.0 Tachycardia, unspecified Jaiden Bo MD 10/11/2019 J44.1 Chronic obstructive pulmonary disease with Jaiden Bo MD (acute) exacerbation 10/11/2019 J96.21 Acute and chronic respiratory failure with Jaiden Bo MD hypoxia 10/11/2019 J06.9 Acute upper respiratory infection, unspecified Jaiden Bo MD 10/11/2019 R00.0 Tachycardia, unspecified Jaiden Bo MD 10/10/2019 J44.1 Chronic obstructive pulmonary disease with Jaiden Bo MD (acute) exacerbation 10/10/2019 J96.21 Acute and chronic respiratory failure with Jaiden Bo MD hypoxia 10/10/2019 J06.9 Acute upper respiratory infection, unspecified Jaiden Bo MD 10/10/2019 R00.0 Tachycardia, unspecified Jaiden Bo MD 07/04/2019 K57.30 Diverticulosis of large intestine without Yayo Ace MD perforation or abscess without bleeding 07/04/2019 K63.5 Polyp of colon Yayo Ace MD 07/04/2019 D50.9 Iron deficiency anemia, unspecified Yayo Ace MD 07/04/2019 K29.50 Unspecified chronic gastritis without bleeding Yayo Ace MD Plan of Treatment Future Appointment(s):01/15/2020 10:30 am - Je Torres [facility] at [id number]/05 /2020 - Je Torres MDJ44.9 Chronic obstructive pulmonary disease, [id number] Obstructive sleep apnea (adult) (pediatric)J96.11 Chronic respiratory failure with reqzlicO51.1 Solitary pulmonary noduleNew Xrays:CT, Chest Low Dose For Lung Cancer Screening W/ Out Contrast, Ordered: 10/17/19 Functional Status Functional Condition Comment Date Status Glasses Active Independent with all ADL's Active Complete Dentures Active Mental Status Description No Information Available Referrals Description No Information Available
--- OUTSIDE RECORDS SUMMARY | 2019-12-03 09:43 | XMS REPORT | Continuity of Care Document ---
:1950 External Reference #:[id number] Author Name VALARIE Frazier (transmitted by agent of provider Ronnie Cazares) Address [address] [place] [address] Care Team Providers Name Role Phone Maria Alejandra Huertas RPA - Medical Care Team Information Finance Administrator [phone] Mitchell Rehman M.D. - Internal Care Team Information Finance Administrator [phone] Medicine Problems Active Problems Provider Date Obstructive [...] pack years Unknown 40 Smoking Status Reviewed: 10/16/19 Patient is a former smoker Quit 2010 pack years 40 Allergies, Adverse Reactions, Alerts Active Allergies Reaction Severity Comments Date Tetanus 12/12/2018 Pseudoephedrine 12/12/2018 Sudafed 12/12/2018 Lipitor 12/12/2018 Adhesive 12/12/2018 Medications Active Medications SIG Qnty Indications Ordering Date Provider Flagyl 1 tab by mouth 15tabs K57.32 [place] 09/17/2019 500mg Tablets every 8 hours MD Ben Fluticasone 2 sprays to each Maikel 12/12/2018 Propionate nare every day MD Ben 50mcg/Act Suspension Ramipril Take 1 Capsule By 90caps I10 Maikel 12/12/2018 1.25mg Mouth Every Day MD Ben Capsules Oxygen Thru [facility] @ 3 liters via [place], [place] 12/12/2018 Homecare continuous And MD Ben with [...] a 180tabs Maikel 12/12/2018 day MD Ben [id number] Tablets Pantoprazole Sodium Take 1 Tablet By [...] Ben Tablets Daliresp 1 by mouth every KhetiMitchell, 500mcg day M.D. Tablets Incruse Ellipta inhale 1 puff by 90units [place] mouth every 24 MD Ben 62.5mcg/Inh Aerosol hours Proair HFA 1-2 inhalations 8.500gm Maikel every 4-6 hours as MD Ben 108(90Base) mcg/Act needed Aerosol Prednisone 4 tablets by mouth Unknown 10mg for 4 days,3 Tablets tablets by mouth for 4 days, 2 tablets by mouth for 4 days, 1 tablet by mouth for 4 days History Medications Amoxicillin/Clavulanate one pill with 20tabs K57.32 Maikel 09/17/2019 - Potassium food twice a MD Ben 10/16/2019 875-125mg Tablets day Oxygen Order Portable R09.02 Maikel 07/11/2019 - system MD Ben 09/19/2019 requiring tank delivery 4 liters via nc while ambulatory 3 liters via nc while sleeping Azithromycin 2 tabs by 11tabs N83.201 Maikel 06/18/2019 - 250mg Tablets mouth today MD Ben 07/01/2019 then 1 tab by mouth daily Order Oxygen @ [place] 06/04/2019 - 3L/min, MD Ben 09/19/2019 continuous Immunizations Description No Information Available Vital Signs Date Vital Result Comment 10/16/2019 11:32am Height 62.5 inches 5'2.50" Weight 219.12 lb Heart Rate 93 /min BP Systolic Sitting 136 mmHg BP Diastolic Sitting 80 mmHg O2 % BldC Oximetry 97 % on 3L O2 via nasal cannula BMI (Body Mass Index) 39.4 kg/m2 09/17/2019 2:02pm Height 62.5 inches 5'2.50" Weight 227.12 lb Heart Rate 96 /min BP Systolic Sitting 136 mmHg BP Diastolic Sitting 72 mmHg Body Temperature 98.5 F O2 % BldC Oximetry 97 % BMI (Body Mass Index) 40.9 kg/m2 Results Test Acquired Date Facility Test Result H/L Range Note CBC W/Auto 09/17/2019 [facility] White Blood 9.0 10^3/uL Normal 3.5-10.[address] [place] [address] [phone] Red Blood Count 4.60 10^6/uL Normal 3.70-4.87 Hemoglobin 12.1 g/dL Normal 12.0-16.0 Hematocrit 38 % Normal 35-47 Mean Corpuscular Volume 83 fL Normal 80-97 Mean Corpuscular Hemoglobin 26 pg Low 27-31 Mean Corpuscular HGB Conc 32 g/dL Normal 31-36 Red Cell Distribution Width 15 % Normal 10-15 Platelet Count 285 10^3/uL Normal 150-450 Mean Platelet Volume 10.0 fL Normal 7.4-10.4 Abs Neutrophils 6.3 10^3/uL Normal 1.5-7.7 Abs Lymphocytes 1.6 10^3/uL Normal 1.0-4.8 Abs Monocytes 0.9 10^3/uL High 0-0.8 Abs Eosinophils 0.1 10^3/uL Normal 0-0.6 Abs Basophils 0.1 10^3/uL Normal 0-0.2 Abs Nucleated RBC 0.0 10^3/uL Granulocyte % 70.2 % Lymphocyte % 17.8 % Monocyte % 10.0 % Eosinophil % 1.4 % Basophil % 0.6 % Nucleated Red Blood Cells % 0.0 Procedures Date Code Description Status 05/13/2019 [id number] Colonoscopy Completed 10/30/2018 [id number] Mammogram Completed 04/28/2018 [id number] Mammogram Completed Medical Devices Description No Information Available Encounters Type Date Location Provider Dx Diagnosis Office Visit 09/17/[address] [facility] [place] K57.32 Dvtrcli of lg int 2:00p [place] w/o perforation or abscess w/o bleeding Office Visit 07/11/[address] [facility] [place] N83.201 Unspecified ovarian 9:30a [place] cyst, right side J44.9 Chronic obstructive pulmonary disease, unspecified Office Visit 06/18/2019 1:27p [facility] J44.0 Chr obstructive Walk-[place] pulmon disease [facility] with (acute) lower resp infct R09.1 Pleurisy Office Visit 05/17/2019 9:30a [facility] [place] J44.9 Chronic [place] obstructive pulmonary disease, unspecified N83.201 Unspecified ovarian cyst, right side K57.32 Dvtrcli of lg int w/o perforation or abscess w/o bleeding Assessments Date Code Description Provider 10/16/2019 J44.0 Chronic obstructive pulmonary disease with Maria Alejandra Aleksandar [place] (acute) lower respiratory infection 09/17/2019 K57.32 Diverticulitis of large intestine without Maria Alejandra [place] perforation or abscess without bleeding 07/11/2019 N83.201 Unspecified ovarian cyst, right side Maria Alejandra [place] 07/11/2019 J44.9 Chronic obstructive pulmonary disease, Maria Alejandra [place] unspecified 06/18/2019 J44.0 Chronic obstructive pulmonary disease with Maria Alejandra [place] (acute) lower respiratory infection 06/18/2019 R09.1 Pleurisy Maria Alejandra [place] 05/17/2019 J44.9 Chronic obstructive pulmonary disease, Maria Alejandra [place] unspecified 05/17/2019 N83.201 Unspecified ovarian cyst, right side Maria Alejandra [place] 05/17/2019 K57.32 Diverticulitis of large intestine without Maria Alejandra [place] perforation or abs Plan of Treatment Future Appointment(s):01/10/2020 10:00 am - VALARIE Frazier at [facility]/16/2019 - VALARIE FrazierJ44.0 Chronic obstructive pulmonary disease with (acute) lower respiratory infection Functional Status Functional Condition Comment Date Status Cpap Active Nebulizer Active Oxygen Active Mental Status Description No Information Available Referrals Description No Information Available
--- OUTSIDE RECORDS SUMMARY | 2019-12-03 09:43 | XMS REPORT | Continuity of Care Document ---
:1950 External Reference #:[id number] Author Name Shelton Hoffman PA (transmitted by agent of provider Juana Ruth) Address [address] [facility], [address] [place] [address] Problems Active Problems Provider Date Obstructive sleep apnea of adult Maria Alejandra Huertas [facility] Onset: 04/10/2014 Note: c-pap Coronary arteriosclerosis Gaetano Butcher M.D., [facility] Onset: 07/18/2013 Benign essential hypertension Gaetano Butcher M.D., [facility] Onset: 2012 Pure hypercholesterolemia Gaetano Butcher M.D., [facility] Onset: 07/18/2013 Chronic obstructive lung disease Gaetano Butcher M.D., [facility] Onset: 07/18 H/O: TIA Maria Alejandra Huertas [facility] Onset: 02/08/2014 Impaired glucose tolerance Maria Alejandra Huertas [facility] Onset: 02/08/2014 Note: noted 2010 Gastroesophageal reflux disease Lina Goodwin, [place] Onset: 08/12/2011 Hyperlipidemia Gaetano Butcher M.D., Onset: 03/08/2016 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 Atherosclerotic heart disease of [place] Gaetano Frederick M.D., Onset: 03/03/2018 [place] coronary artery with [facility] unspecified angina pectoris Social History Type [...] Ramipril 1 cap by mouth 90caps R03.0 Bhupendra Cortes, 09/01/2018 1.25mg every day M.D. Capsules Fluticasone [place] 2 Sprays In 48units Bhupendra Cortes, 07/31/2018 Propionate Each Nostril Once M.D. 50mcg/Act Daily Suspension Incruse Ellipta Inhale 1 30units Bhupendra Cortes, 07/05/2018 Inhalation Every M.D. 62.5mcg/Inh Aerosol Day Duoneb as needed Unknown 02/10/2018 0.5-2.5(3)mg/3ML Solution Furosemide Take 1 Tablet By 60tabs I50.32 Nicole Cristobal 01/23/2018 20mg Mouth Every Day Nancy, MSN, Tablets With Second Tablet BRAND DIRECTOR as Needed For Edema Advair Diskus take [...] Tablets Montelukast Sodium Take 1 Tablet By 90taBhupendra De La Garza, 02/03/2015 Mouth Every Day M.D. 10mg Tablets Calcium 500/D po daily per pt Nicole Cristobal CHAYITO Cruz, [id number] BRAND DIRECTOR Chewt[employer] Pantoprazole Sodium 1 po daily 180tabs Bhupendra Cortes, M.D. 40mg Tablets Vitamin C 1 by mouth every Unknown [...] Reaction Lot # U-Flu Given 06/09/2018 Influenza,Unspecified 93244 Given 06/09/2018 Influenza High Dose 89965 Given 06/03/2017 Influenza High Dose received at [facility]. 45485 Given 06/03/2017 Influenza High Dose Q2038 Given 06/20/2016 Influenza Vaccine (Fluzone) Age 3 And Older 49691 Given 06/27/2015 Pneumococcal Conjugate [id number] Vaccine 13 Valent For Intramuscular Use Q2038 Given 06/13/2015 Influenza Vaccine (Fluzone) [id number] Age 3 And Older 17663 Given 06/28/2014 flu vaccination 92167 Given 07/13/2013 flu vaccination 13368 Given 06/01/2012 flu vaccination 15508 Given 06/28/2011 flu vaccination 23117 Given 06/30/2010 flu vaccination 62730 Given 09/23/2009 H1N1 Immuniation Adminstration 49380 Given 07/15/2009 flu vaccination 24564 Given 07/09/2008 Pneumovax Injection 50610 Given 07/09/2008 flu vaccination 58447 Given Unknown Influenza Virus Vaccine, Quadrivalent, 36 [...] kg/m2 BSA (Body Surface Area) 2.04 m2 [place] body weight in kilograms 57 kg O2 [...] GFR >60 >60 pred.non black (Non- SerPl [place] MDRD-ArVRat GFR/Bsa 11/07/2019 N2N/CCD Import Estimated GFR [...] Import Urine Specific 1.007 Low 1.010-1.03 Refractometry [place] 0 Hgb Ur Ql 11/05/2019 N2N/CCD Import [...] Antigen Procedures Date Code Description Status 05/21/2019 [id number] Colonoscopy Completed 10/30/2018 [id number] Mammogram Completed 04/28/2018 [id number] Mammogram Completed 12/13/2014 [id number] Colonoscopy Completed 05/24/2014 [id number] Colonoscopy Completed 09/12/2009 [id number] Bone Mineral Density Test Completed 07/07/2004 [id number] Colonoscopy Completed Medical Devices Description No Information Available Encounters Type Date Location Provider Dx Diagnosis Office Visit 11/20/2019 [facility] Shelton Hoffman, R19.7 Diarrhea, unspecified 11:15a [place] K57.92 Dvtrcli of intest, part unsp, w/o perf or abscess w/o bleed Office Visit 10/17/2019 10:30a Pulmonology Je Torres MD J44.9 Chronic obstructive pulmonary disease, unspecified G47.33 Obstructive sleep apnea (adult) (pediatric) J96.11 Chronic respiratory failure with hypoxia R91.1 Solitary pulmonary nodule Office Visit 07/04/2019 1:15p GI Yayo Ace MD K57.30 Dvrtclos of lg int w/o perforation or abscess w/o bleeding K63.5 Polyp of colon D50.9 Iron deficiency anemia, unspecified K29.50 Unspecified chronic gastritis without bleeding Assessments Date Code Description Provider 11/20/2019 R19.7 Diarrhea, unspecified Shelton Hoffman PA 11/20/2019 K57.92 Diverticulitis of intestine, part Shelton Hoffman PA unspecified, without perforation or abscess without bleeding 11/07/2019 R10.32 Left lower quadrant pain [place]anger, Sarah, REGISTERED PHLEBOTOMIST PART TIME 11/07/2019 J96.11 Chronic respiratory failure with hypoxia Salanger, Sarah, REGISTERED PHLEBOTOMIST PART TIME 11/07/2019 K59.00 Constipation, unspecified Salanger, Sarah, REGISTERED PHLEBOTOMIST PART TIME 11/07/2019 K57.92 Diverticulitis of intestine, part Salanger, Sarah, REGISTERED PHLEBOTOMIST PART TIME unspecified, without perforation or abscess without bleeding 11/06/2019 K57.92 Diverticulitis of intestine, part Ali, Mohammad, MD unspecified, without perforation or abscess without bleeding 11/06/2019 R10.32 Left lower quadrant pain Salanger, Sarah, REGISTERED PHLEBOTOMIST PART TIME 11/06/2019 R93.5 Abnormal findings on diagnostic imaging of Vicki Cid MD other abdominal regions, including retroperitoneum 11/06/2019 K57.90 Diverticulosis of intestine, part Salanger, Sarah, REGISTERED PHLEBOTOMIST PART TIME unspecified, without perforation or abscess without bleeding 11/06/2019 R10.9 Unspecified abdominal pain Vicki Cid MD 11/06/2019 J96.11 Chronic respiratory failure with hypoxia Salanger, Sarah, REGISTERED PHLEBOTOMIST PART TIME 11/06/2019 Z87.19 Personal history of other diseases of the Vicki Cid MD digestive system 11/06/2019 K59.00 Constipation, unspecified Salanger, Sarah, REGISTERED PHLEBOTOMIST PART TIME 11/05/2019 R10.32 Left lower quadrant pain Salanger, Sarah, REGISTERED PHLEBOTOMIST PART TIME 11/05/2019 K57.90 Diverticulosis of intestine, part Salanger, Sarah, REGISTERED PHLEBOTOMIST PART TIME unspecified, without perforation or abscess without bleeding 11/05/2019 J96.11 Chronic respiratory failure with hypoxia Salanger, Sarah, REGISTERED PHLEBOTOMIST PART TIME 11/05/2019 K59.00 Constipation, unspecified Sal[place], Sarah, REGISTERED PHLEBOTOMIST PART TIME 10/17/2019 J44.9 Chronic obstructive pulmonary disease, Je [...] hypoxia 10/13/2019 J06.9 Acute upper respiratory infection, Jaiden Bo MD unspecified 10/13/2019 R00.0 Tachycardia, unspecified Jaiden Bo MD 10/12/2019 J44.1 Chronic obstructive pulmonary disease with Jaiden Bo MD (acute) exacerbation 10/12/2019 J96.21 Acute and chronic respiratory failure with Jaiden Bo MD hypoxia 10/12/2019 J06.9 Acute upper respiratory infection, Jaiden Bo MD unspecified 10/12/2019 R00.0 Tachycardia, unspecified Jaiden Bo MD 10/11/2019 J44.1 Chronic obstructive pulmonary disease with Jaiden Bo MD (acute) exacerbation 10/11/2019 J96.21 Acute and chronic respiratory failure with Jaiden Bo MD hypoxia 10/11/2019 J06.9 Acute upper respiratory infection, Jaiden Bo MD unspecified 10/11/2019 R00.0 Tachycardia, unspecified Jaiden Bo MD 10/10/2019 J44.1 Chronic obstructive pulmonary disease with Jaiden Bo MD (acute) exacerbation 10/10/2019 J96.21 Acute and chronic respiratory failure with Jaiden Bo MD hypoxia 10/10/2019 J06.9 Acute upper respiratory infection, Jaiden Bo MD unspecified 10/10/2019 R00.0 Tachycardia, unspecified Jaiden Bo MD 07/04/2019 K57.30 Diverticulosis of large intestine without Yayo Ace MD perforation or abscess without bleeding 07/04/2019 K63.5 Polyp of colon Yayo Ace MD 07/04/2019 D50.9 Iron deficiency anemia, unspecified Yayo Ace MD 07/04/2019 K29.50 Unspecified chronic gastritis without Yayo Ace MD bleeding Plan of Treatment Future Appointment(s):02/11/2020 11:30 am - Shelton Hoffman PA at GI2019 10:30 am - Je Torres MD at [facility]/10/2020 - Shelton Hoffman, PAR19.7 Diarrhea, unspecifiedComments:C. difficile culture by PCR is ordered. She will contact me Tuesday for tcfohazK22.92 Diverticulitis of intestine, part unspecified, without perforation or abscess without bleedingComments:In reviewing with Dr. Cid the patient does need a follow-up colonoscopy. We will schedule this onceher diarrhea improves/resolves Functional Status Functional Condition Comment Date Status Glasses Active Independent with all ADL's Active Complete Dentures Active Mental Status Description No Information Available Referrals Description No Information Available
--- OUTSIDE RECORDS SUMMARY | 2019-12-03 09:43 | XMS REPORT | Continuity of Care Document ---
:1950 External Reference #:[id number] Author Name VALARIE Frazier (transmitted by agent of provider Nicci Lorenzo) Address [address] [place] [address] Care Team Providers Name Role Phone Maria Alejandra Huertas RPA - Medical Care Team Information Paediatric Surgeon [phone] Mitchell Rehman M.D. - Internal Care Team Information Paediatric Surgeon [phone] Medicine Vicki Cid MD - Care Team Information Paediatric Surgeon [phone] Gastroenterology Problems Active Problems Provider Date Obstructive sleep [...] End: Patient is a former smoker Quit 2010 pack years Unknown 40 Smoking Status Reviewed: 11/13/19 Patient is a former smoker Quit 2010 pack years 40 Allergies, Adverse Reactions, Alerts Active Allergies Reaction Severity Comments Date Tetanus 12/12/2018 Pseudoephedrine 12/12/2018 Sudafed 12/12/2018 Lipitor 12/12/2018 Adhesive 12/12/2018 Medications Active Medications SIG Qnty Indications Ordering Date Provider Acidophilus 1 by mouth twice a Maikel 11/13/2019 Lactobacillus day MD Ben Capsules Furosemide 1 by mouth every Maikel 12/12/2018 20mg Tablets day MD Ben Pravastatin Sodium Take 1 Tablet By 90tabs Maikel 12/12/2018 40mg Mouth Every MD Ben Tablets Evening Montelukast Sodium 1 by mouth every 90tabs Maikel 12/12/2018 10mg day MD Ben Tablets Pantoprazole Sodium Take 1 Tablet By 180tabs Maikel 12/12/2018 Mouth Twice Daily MD Ben 40mg Tablets Calcium 500 +D 1 by mouth twice a 180tabs Maikel 12/12/2018 day MD Ben [id number] Tablets Vitamin C 1 by mouth every Maikel 12/12/2018 1000mg day MD Ben Tablets Aspirin Ec Low Dose 1 by mouth every 30tabs Maikel 12/12/2018 day MD Ben 81mg Tablets Albuterol Sulfate 1 application 75ml Maikel 12/12/2018 every 4 hours as MD Ben (2.5mg/3ML) 0.083% needed Nebulizer Oxygen Thru [facility] @ 3 liters via [place], Maikel 12/12/2018 Homecare continuous And MD Ben with c-pap Ramipril Take 1 Capsule By 90caps I10 12/12/2018 1.25mg Mouth Every Day MD Ben Capsules Fluticasone 2 sprays to each Maikel 12/12/2018 Propionate nare every day MD Ben 50mcg/Act Suspension Benefiber daily Unknown Powder Probiotic Acidophilus 1 by mouth every Unknown day -bid Capsules Proair HFA 1-2 inhalations 8.500gm Maikel 108(90Base) every 4-6 hours as MD Ben mcg/Act Aerosol needed Incruse Ellipta inhale 1 puff by 90units Maikel mouth every 24 MD Ben 62.5mcg/Inh Aerosol hours Daliresp 1 by mouth every Kheti, Mitchell, 500mcg Tablets day M.D. History Medications Ciprofloxacin HCL 1 tab by mouth Vicki Cid 11/05/2019 - 500mg twice a day F., 11/16/2019 Tablets Metronidazole one tablet by Vicki Cid 11/05/2019 - 500mg mouth 3 times FMD [place] 11/16/2019 Tablets daily for 7 days Prednisone 4 tablets by mouth Unknown 10/13/2019 - 10mg Tablets for 3 days,3 10/26/2019 tablets by mouth for 3 days, 2 tablets by mouth for 3 days, 1 tablet by mouth for 3 days Amoxicillin/Clavulana one pill with food 20tabs K57.32 Maikel 09/17/2019 - te Potassium twice a day MD Ben 10/16/2019 875-125mg Tablets Flagyl 1 tab by mouth 15tabs K57.32 Maikel 09/17/2019 - 500mg Tablets every 8 hours MD Ben 11/13/2019 Oxygen Order Portable system R09.02 Maikel 07/11/2019 - requiring tank MD Ben 09/19/2019 delivery 4 liters via nc while ambulatory 3 liters via nc while sleeping Azithromycin 2 tabs by mouth 11tabs N83.201 Maikel 06/18/2019 - 250mg today then 1 tab MD Ben 07/01/2019 Tablets by mouth daily Order Oxygen @ 3L/min, Maikel 06/04/2019 - continuous MD Ben 09/19/2019 Immunizations Description No Information Available Vital Signs Date Vital Result Comment 11/13/2019 10:56am Height 62.5 inches 5'2.50" Weight 234.25 lb Heart Rate 90 /min BP Systolic Sitting 148 mmHg BP Diastolic Sitting 80 mmHg Body Temperature 98.2 F O2 % BldC Oximetry 95 % O2 on 3L BMI (Body Mass Index) 42.2 kg/m2 10/16/2019 11:32am Height 62.5 inches 5'2.50" Weight 219.12 lb Heart Rate 93 /min BP Systolic Sitting 136 mmHg BP Diastolic Sitting 80 mmHg O2 % BldC Oximetry 97 % on 3L O2 via nasal cannula BMI (Body Mass Index) 39.4 kg/m2 Results Test Acquired Date Facility Test Result H/L Range Note CBC W/Auto 09/17/2019 [facility] White Blood 9.0 10^3/uL Normal 3.5-10.[address] [place] [address] [phone] Red Blood Count 4.60 10^6/uL Normal 3.70-4.87 [...] 0.0 Procedures Date Code Description Status 05/13/2019 [id number] Colonoscopy Completed 10/30/2018 [id number] Mammogram Completed 04/28/2018 [id number] Mammogram Completed Medical Devices Description No Information Available Encounters Type Date Location Provider Dx Diagnosis Office Visit 11/13/2019 [facility] Maria Alejandra K57.32 Dvtrcli of lg int 11:00a [place] w/o perforation or abscess w/o bleeding Office Visit 10/16/2019 [facility] Maria Alejandra J44.0 Chr obstructive 11:30a [place] pulmon disease with (acute) lower resp infct Office Visit 09/17/2019 [facility] Maria Alejandra K57.32 Dvtrcli of lg int 2:00p [place] w/o perforation or abscess w/o bleeding Office Visit 07/11/2019 [facility] Maria Alejandra N83.201 Unspecified ovarian 9:30a [place] cyst, right side J44.9 Chronic obstructive pulmonary disease, unspecified Office Visit 06/18/2019 1:27p [facility] Maria Alejandra J44.0 Chr obstructive Walk-[place] pulmon disease [facility] with (acute) lower resp infct R09.1 Pleurisy Assessments Date Code Description Provider 11/13/2019 K57.32 Diverticulitis of large intestine without Maria Alejandra [place] perforation or abscess without bleeding 10/16/2019 J44.0 Chronic obstructive pulmonary disease with Maria Alejandra [place] (acute) lower respiratory infection 09/17/2019 K57.32 Diverticulitis of large intestine without Maria Alejandra [place] perforation or abscess without bleeding 07/11/2019 N83.201 Unspecified ovarian cyst, right side Maria Alejandra [place] 07/11/2019 J44.9 Chronic obstructive pulmonary disease, Maria Alejandra [place] unspecified 06/18/2019 J44.0 Chronic obstructive pulmonary disease with Maria Alejandra [place] , [place] (acute) lower respiratory infection 06/18/2019 R09.1 Pleurisy Maria Alejandra [place] Plan of Treatment Future Appointment(s):01/10/2020 10:00 am - Maria Alejandra Huertas PA at [facility]/13/2019 - Maria Alejandra Aleksandar, PAK57.32 Diverticulitis of large intestine without perforation or abscess without bleedingComments:Completing Flagyl and Cipro treatment Notified Dr Cid's office on 11/14/19, lab results sent to the officeAllNew Medication:Acidophilus Lactobacillus - 1 by mouth twice a day Functional Status Functional Condition Comment Date Status Cpap Active Nebulizer Active Oxygen Active Mental Status Description No Information Available Referrals Description No Information Available
--- OUTSIDE RECORDS SUMMARY | 2019-12-03 09:43 | XMS REPORT | Continuity of Care Document ---
:1950 External Reference #:[id number] Author Name VALARIE Frazier (transmitted by agent of provider Makeda Alonso) Address [address] [place] [address] Care Team Providers Name Role Phone Maria Alejandra Huertas RPA - Medical Care Team Information Registered Dietician Mitchell Rehman M.D. - Internal Care Team Information Registered Dietician [phone] Medicine Vicki Cid MD - Care Team Information Registered Dietician [phone] Gastroenterology Problems Active Problems Provider Date Obstructive [...] 12/12/2018 Diverticulitis of sigmoid colon Maria Alejandra Huertas, PA Onset: 03/18/2019 Note: 02/2019 Polyp of [...] Maikel 11/13/2019 Lactobacillus day MD Ben Capsules Ciprofloxacin HCL 1 tab by mouth Vicki Cid 11/05/2019 500mg twice a day MD Caroline Tablets Metronidazole one tablet by Vicki Cid 11/05/2019 500mg mouth 3 times MD Caroline Tablets daily for 7 days Fluticasone 2 sprays to each Maikel 12/12/2018 Propionate nare every day MD Ben 50mcg/Act Suspension Ramipril Take 1 Capsule By 90caps I10 Maikel 12/12/2018 1.25mg Mouth Every Day MD Ben Capsules Oxygen Thru [facility] @ 3 liters via [place], Maikel 12/12/2018 Homecare continuous And MD Ben with c-pap Albuterol Sulfate 1 application 75ml 12/12/2018 every 4 hours as MD Ben (2.5mg/3ML) 0.083% needed Nebulizer Aspirin Ec Low Dose 1 by mouth every 30tabs Maikel 12/12/2018 day MD Ben 81mg Tablets Vitamin C 1 by mouth every Maikel 12/12/2018 1000mg day MD Ben Tablets Calcium 500 +D 1 by mouth twice a 180tabs Maikel 12/12/2018 day MD Ben [id number] Tablets Pantoprazole Sodium Take 1 Tablet By 180tabs Maikel 12/12/2018 Mouth Twice Daily MD Ben 40mg Tablets Montelukast Sodium 1 by mouth every 90tabs Maikel 12/12/2018 10mg day MD Ben Tablets Pravastatin Sodium Take 1 Tablet By 90tabs Maikel 12/12/2018 40mg Mouth Every MD Ben Tablets Evening Furosemide 1 by mouth every Maikel 12/12/2018 20mg Tablets day MD Ben Benefiber daily Unknown Powder Probiotic Acidophilus 1 by mouth every Unknown day -bid Capsules Proair HFA 1-2 inhalations 8.500gm Maikel 108(90Base) every 4-6 hours as MD Ben mcg/Act Aerosol needed Incruse Ellipta inhale 1 puff by 90units Maikel mouth every 24 MD Ben 62.5mcg/Inh Aerosol hours Daliresp 1 by mouth every Kheti, Mitchell, 500mcg Tablets day M.D. History Medications Prednisone 4 tablets by mouth Unknown 10/13/2019 - 10mg for 3 days,3 10/26/2019 Tablets tablets by mouth for 3 days, 2 tablets by mouth for 3 days, 1 tablet by mouth for 3 days Amoxicillin/Clavulan one pill with food 20tabs K57.32 Maikel 09/17/2019 - ate Potassium twice a day MD Bne 10/16/2019 875-125mg Tablets Flagyl 1 tab by [...] Result H/L Range Note CBC W/Auto 09/17/2019 [facility] White Blood 9.0 10^3/uL Normal 3.5-10.[address] [place] [address] [phone] Red Blood Count 4.60 10^6/uL Normal 3.70-4.87 [...] 0.0 Procedures Date Code Description Status 05/13/2019 79103966 Colonoscopy Completed 10/30/2018 [id number] Mammogram Completed 04/28/2018 [id number] Mammogram Completed Medical Devices Description No Information Available Encounters Type Date Location Provider Dx Diagnosis Office Visit 10/16/2019 [facility] Maria Alejandra J44.0 Chr obstructive 11:30a [place] pulmon disease with (acute) lower resp infct Office Visit 09/17/2019 [facility] Maria Alejandra K57.32 Dvtrcli of lg int 2:00p [place] w/o perforation or abscess w/o bleeding Office Visit 07/11/2019 [facility] Maria Alejandra N83.201 Unspecified ovarian 9:30a [place] cyst, right side J44.9 Chronic obstructive pulmonary disease, unspecified Office Visit 06/18/2019 1:27p [facility] Maria Alejandra J44.0 Chr obstructive Walk[place] pulmon disease [facility] with (acute) lower resp infct R09.1 Pleurisy Office Visit 05/17/2019 9:30a [facility] Maria Alejandra J44.9 Chronic [place] obstructive pulmonary disease, unspecified N83.201 Unspecified ovarian cyst, right side K57.32 Dvtrcli of lg int w/o perforation or abscess w/o bleeding Assessments Date Code Description Provider 11/13/2019 K57.32 Diverticulitis of large intestine without Maria Alejandra [place] perforation or abscess without bleeding 10/16/2019 J44.0 Chronic obstructive pulmonary disease with Maria Alejandra [place] (acute) lower respiratory infection 09/17/2019 K57.32 Diverticulitis of large intestine without Maria Alejandra [place] perforation or abscess without bleeding 07/11/2019 N83.201 Unspecified ovarian cyst, right side Maria Alejandra [place] 07/11/2019 J44.9 Chronic obstructive pulmonary disease, Maria Alejandra [place] unspecified 06/18/2019 J44.0 Chronic obstructive pulmonary disease with Maria Alejandra [place] (acute) lower respiratory infection 06/18/2019 R09.1 Pleurisy Maria Alejandra [place] 05/17/2019 J44.9 Chronic obstructive pulmonary disease, Maria Alejandra [place] unspecified 05/17/2019 N83.201 Unspecified ovarian cyst, right side Maria Alejandra [place] 05/17/2019 K57.32 Diverticulitis of large intestine without Maria Alejandra [place] perforation or abs Plan of Treatment Future Appointment(s):01/10/2020 10:00 am - VALARIE Frazier at [facility]11/13/2019 - Maria Alejandra [place], PAK57.32 Diverticulitis of large intestine without perforation or abscess without bleedingNew Labs:CBC W/Auto Diff, Ordered : 11/13/19CRP C-Reactive Protein, Ordered: 11/13/19Esr Sedimentation Rate, Ordered: 11/13/19CMP Panel, Ordered: 11/13/19Comments:Completing Flagyl and Cipro treatmentAllNew Medication:Acidophilus Lactobacillus - 1 by mouth twice a day Functional Status Functional Condition Comment Date Status Cpap Active Nebulizer Active Oxygen Active Mental Status Description No Information Available Referrals Description No Information Available
--- OUTSIDE RECORDS SUMMARY | 2019-12-03 09:43 | XMS REPORT | Continuity of Care Document ---
:1950 External Reference #:[id number] Author Name Je Torres MD Address [address] [place] [address] Problems Active Problems Provider Date [facility]struct[facility] sleep [facility] 04/10/2014 Note: c-pap Coronary arteriosclerosis Gaetano Butcher M.D., [facility] Onset: 07/18/2013 Benign essential hypertension Gaetano Butcher M.D., [facility] Onset: 2012 Pure hypercholesterolemia Gaetano Butcher M.D., [facility] Onset: 07/18/2013 Chronic obstructive lung disease Gaetano Butcher M.D., [facility] Onset: 07/18 H/O: [facility]: 02/08/2014 Impaired glucose tolerance [facility] Onset: 02/08/2014 Note: noted 2010 Gastroesophageal reflux disease Lina Goodwin FNP Onset: 08/12/2011 Hyperlipidemia Gaetano Butcher M.D., Onset: 03/08/2016 [facility] History of adenomatous polyp of colon Maria Alejandra Huertas 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 Atherosclerotic heart disease of Gaetano Butcher M.D., Onset: 03/03/2018 [place] coronary artery with FACC unspecified angina pectoris Social History Type Date Description Comments Sex Unknown Cigarette Use Pack Years - 39 Tobacco Use Start: Unknown End: Quit Unknown Smoking Status Reviewed: 10/17/19 Quit Smokeless Tobacco Never Used Smokeless Tobacco ETOH Use Consumes 2 glasses of wine per week Tobacco Use Start: Unknown End: Patient is a former smoker QUIT 2009 Unknown Recreational Drug Use Denies Drug Use Allergies, Adverse Reactions, Alerts Active Allergies Reaction Severity Comments Date Tetanus 10/10/2008 Pseudoephedrine 06/15/2016 Sudafed 10/10/2008 Lipitor MYALGIAS 02/28/2015 Adhesives contact dermatitis 10/01/2015 Medications Active Medications SIG Qnty Indications Ordering Date Provider Ramipril 1 cap by mouth 90caps R03.0 Bhupendra Cortes, 09/01/2018 1.25mg every day M.D. Capsules Fluticasone [place] 2 Sprays In 48units Bhupendra Cortes, 07/31/2018 Propionate Each Nostril Once M.D. 50mcg/Act Daily Suspension Incruse Ellipta Inhale 1 30units Bhupendra Cortes, 07/05/2018 Inhalation Every M.D. 62.5mcg/Inh Aerosol Day Duoneb as needed Unknown 02/10/2018 0.5-2.5(3)mg/3ML Solution Furosemide Take 1 Tablet By 60tabs I50.32 Nicole Cristobal 01/23/2018 20mg Mouth Every Day Nancy, CHAYITO, Tablets With Second Tablet BLOGS MANAGER as Needed For Edema Advair Diskus take [...] Sodium Take One Tablet By 90tabs E78.0 CortesRicardo alejandreshan, 2014 Mouth Every Day M.D. 40mg Tablets Montelukast Sodium Take 1 Tablet By 90tabs CortesRicardo alejandreshan, 02/03/2015 Mouth Every Day M.D. 10mg Tablets Calcium 500/D po daily per pt Nicole Cristobal CHAYITO Cruz, [id number] BLOGS MANAGER Chewtabs Pantoprazole Sodium 1 po daily 180tabs Cortes, Bhupendra, M.D. 40mg Tablets DR Vitamin C 1 [...] 2 and then 3 days of 1 History Medications Dulcolax 4 tablets taken a 4tabs Yayo Prabhakar MD 05/03/2019 - 5mg 8pm the day before 06/27/[address] the procedure Citroma drink 1 bottle at 296ml Yayo Prabhakar MD 05/03/2019 - 12pm (noon)the day 06/27/2019 1.745GM/30ML before the Solution procedure Plenvu take half the 500ml Yayo Prabhakar MD 05/03/2019 - 140gm bottle the day 06/27/2019 Solution Rec before the exam half the morning Immunizations CPT Code Status Date Vaccine Reaction Lot # [id number] Given 06/09/2018 Influenza,Unspecified 52968 Given 06/09/2018 Influenza High Dose 21408 Given 06/03/2017 Influenza High Dose received at [facility]. 82998 Given 06/03/2017 Influenza High Dose Q2038 Given 06/20/2016 Influenza Vaccine (Fluzone) Age 3 And Older 78535 Given 06/27/2015 Pneumococcal Conjugate [id number] Vaccine 13 Valent For Intramuscular Use Q2038 Given 06/13/2015 Influenza Vaccine (Fluzone) [id number] Age 3 And Older 41930 Given 06/28/2014 flu vaccination 60887 Given 07/13/2013 flu vaccination 96861 Given 06/01/2012 flu vaccination 62138 Given 06/28/2011 flu vaccination 02239 Given 06/30/2010 flu vaccination 04395 Given 09/23/2009 H1N1 Immuniation Adminstration 24672 Given 07/15/2009 flu vaccination 07319 Given 07/09/2008 Pneumovax Injection 20753 Given 07/09/2008 flu vaccination Vital Signs Date Vital Result Comment 10/17/2019 10:28am BP Systolic Sitting Right Arm 132 mmHg BP Diastolic Sitting Right Arm 77 mmHg Heart Rate 100 /min Respiratory Rate 24 /min Height 62 inches 5'2" Weight 220.00 lb BMI (Body Mass Index) 40.2 kg/m2 BSA (Body Surface Area) 1.99 m2 [place] body weight in kilograms 50 kg O2 % BldC Oximetry 96 % nc/4l 07/04/2019 1:15pm BP Systolic Sitting Right Arm 122 mmHg BP Diastolic Sitting Right Arm 78 mmHg Body Temperature 97.6 F Heart Rate 91 /min Respiratory Rate 17 /min Height 62 inches 5'2" Weight 219.00 lb BMI (Body Mass Index) 40.1 kg/m2 BSA (Body Surface Area) 1.99 m2 [place] body weight in kilograms 50 kg O2 % BldC Oximetry 97 % Results Test Acquired Date Facility Test Result H/L Range Note Iron-Tibc-%Sat 05/03/2019 [facility] Serum Iron 53 g/dL Normal 50-170 [address] [place] [address] [phone] Total Iron Binding Capacity 586 g/dL High 250-450 Transferrin %Saturation 9 % Low 12-57 1 D50.9 Procedures Date Code Description Status 05/21/2019 43444 Colonoscopy With Biopsy Completed 05/21/2019 96936 EGD With Biopsy Completed 05/21/2019 [id number] Colonoscopy Completed 10/30/2018 [id number] Mammogram Completed 04/28/2018 [id number] Mammogram Completed 12/13/2014 [id number] Colonoscopy Completed 05/24/2014 [id number] Colonoscopy Completed 09/12/2009 [id number] Bone Mineral Density Test Completed 07/07/2004 [id number] Colonoscopy Completed Medical Devices Description No Information Available Encounters Type Date Location Provider Dx Diagnosis Office Visit 07/04/2019 GI Yayo Ace MD K57.30 Dvrtclos of lg int w /o 1:15p perforation or abscess w/o bleeding K63.5 Polyp of colon D50.9 Iron deficiency anemia, unspecified K29.50 Unspecified chronic gastritis without bleeding Office Visit 05/03/2019 1:30p GI Yayo Ace MD K57.92 Dvtrcli of intest, part unsp, w/o perf or abscess w/o bleed D50.9 Iron deficiency anemia, unspecified Assessments Date Code Description Provider 10/17/2019 J44.9 Chronic obstructive pulmonary disease, Je [...] chronic gastritis without bleeding Yayo Ace MD 05/21/2019 K57.30 Diverticulosis of large intestine without Yayo Ace MD perforation or abscess without bleeding 05/21/2019 D12.0 Benign neoplasm of cecum Yayo Ace MD 05/21/2019 K29.50 Unspecified chronic gastritis without bleeding Yayo Ace MD 05/03/2019 K57.92 Diverticulitis of intestine, part unspecified, Yayo Ace MD without perforation or abscess without bleeding 05/03/2019 D50.9 Iron deficiency anemia, unspecified Yayo Ace MD Plan of Treatment Future Appointment(s):01/15/2020 10:30 am - Brady Griffin MD at [id number] /05/2020 - Je Torres MDJ44.9 Chronic obstructive pulmonary disease, idzptdpkjiuP68.33 Obstructive sleep apnea (adult) (pediatric)J96.11 Chronic respiratory failure with jieamgsY35.1 Solitary pulmonary noduleNew Xrays:CT, Chest Low Dose For Lung Cancer Screening W/ Out Contrast, Ordered: 10/17/19 Functional Status Functional Condition Comment Date Status Glasses Active Independent with all ADL's Active Complete Dentures Active Mental Status Description No Information Available Referrals Description No Information Available
[2019-12-03 09:50] VITALS: BP 157/87
--- NOTE | 2019-12-03 10:08 | UC ---
General HPI - HPI Summary HPI Summary: 3 days Initially sore throat yesterday problem breathing Today still with shortness of breath No chest pain Asthma, COPD - using Advair, rescue and nebulizer - Nebulizer 3 times a day Is on oxygen 3L and 4L with exertion Hospitalized one month ago for SOB No sick contacts No travel history drove - he is in the truck - History of Current Complaint Chief Complaint: UCGeneralIllness Stated Complaint: LOW GRADE FEVER HX EMPHESEMA/COPD Time Seen by Provider: 12/03/19 09:50 Hx Last Menstrual Period: n/a Pain Intensity: 3 - Allergy/Home Medications Allergies/Adverse Reactions: Allergies Allergy/AdvReac Type Severity Reaction Status Date / Time pseudoephedrine Allergy Tachycardia Verified 12/03/19 09:50 [From Sudafed] Tetanus Vaccines and Toxoid Allergy Rash Verified 12/03/19 09:50 Home Medications: Home Medications Albuterol 2.5MG/3ML (0.083%)* [Ventolin 2.5 MG/3 ML NEB.RADHA*] 2.5 mg INH Q6H PRN 09/21/15 [History Confirmed 12/03/19] Albuterol HFA INHALER* [Ventolin HFA Inhaler*] 1 - 2 puff INH Q4H PRN 09/21/15 [ History Confirmed 12/03/19] Fluticasone NASAL SPRAY 50MCG* [Flonase NASAL SPRAY 50MCG*] 2 spray BOTH NARES DAILY 09/21/15 [History Confirmed 12/03/19] Montelukast Sodium TAB* [Singulair 10 MG TAB*] 10 mg PO DAILY 09/21/15 [History Confirmed 12/03/19] Pantoprazole TAB * [Protonix TAB*] 40 mg PO DAILY 09/21/15 [History Confirmed ] Pravastatin Sodium [Pravachol] 40 mg PO DAILY 09/21/15 [History Confirmed ] Aspirin EC TAB* [Ecotrin EC Low Dose 81 MG*] 81 mg PO DAILY 06/15/16 [History Confirmed 12/03/19] Roflumilast [Daliresp] 500 mcg PO DAILY 06/15/16 [History Confirmed 12/03/19] Furosemide TAB* [Lasix TAB*] 20 mg PO DAILY 05/21/17 [History Confirmed 12/03/19 ] Multivitamins/Minerals TAB* [Thera M Plus TAB*] 1 tab PO DAILY 05/21/17 [ History Confirmed 12/03/19] Calcium Carbonate [Calcium] 500 mg PO DAILY 04/20/19 [History Confirmed 12/03/19 ] Fluticasone-Salmeterol 500-50* [Advair Diskus 500-50*] 1 puff INH BID 04/20/19 [ History Confirmed 12/03/19] Umeclidinium [place] [Incruse Ellipta] 62.5 mcg IH DAILY 04/20/19 [History Confirmed 12/03/19] ramipriL [Ramipril] 1.25 mg PO DAILY 04/20/19 [History Confirmed 12/03/19] PMH/Surg Hx/FS Hx/Imm Hx Previously Healthy: No Respiratory History: COPD, Asthma, Other - on chronic oxygen - Surgical History Surgical History: Yes Surgery Procedure, Year, and Place: Tonsilectomy, knee surgery, tubal, hysterectomy, [facility] - Family History Known Family History: Positive: Cardiac Disease, Hypertension, Diabetes - Social History Alcohol Use: Weekly Substance Use Type: None Smoking Status (MU): Former Smoker Type: Cigarettes Amount Used/How Often: 1 PPD Length of Time of Smoking/Using Tobacco: 46 Years Have You Smoked in the Last Year: No When Did the Patient Quit Smoking/Using Tobacco: 4 YRS - Immunization History Most Recent Influenza Vaccination: June 2015 Most Recent Pneumonia Vaccination: June 2015 Review of Systems All Other Systems Reviewed And Are Negative: Yes Constitutional: Positive: Fever Respiratory: Positive: Shortness Of Breath Physical Exam Triage Information Reviewed: Yes Appearance: Other: - respiratory distress Vital Signs: Initial Vital Signs Temp 100.2 F 12/03/19 09:44 Pulse 117 12/03/19 09:44 Resp 20 12/03/19 09:44 BP 157/87 12/03/19 09:44 Pulse Ox 98 12/03/19 09:44 Vital Signs Reviewed: Yes Eyes: Positive: Conjunctiva Clear Respiratory: Positive: Other: - tachypnea with accessory muscle use Poor areation. No wheezing Course/Dx - Course Course Of Treatment: Patient tachypneic and concern for respiratory distress - took her nebulizer about 2 hours ago, helped her somewhat but still in distress Flu and RSV both negative Discussed she needs to go to the ER for further evaluation Declined EMS transfer due to insurance and cost COVID test sent Patient escorted out to her car, where her is via wheelchair Sign out given to Dr. Calero at [facility] - he requested patient call before entering so that can set up appropriate precautions in place - Diagnoses Provider Diagnosis: Respiratory distress Discharge ED - Sign-Out/Discharge Documenting (check all that apply): Patient Departure All imaging exams completed and their final reports reviewed: No Studies - Discharge Plan Condition: Critical Disposition: HOME-RECOMMEND TO ED Forms: COVID-19 Tested & Isolation Referrals: Maria Alejandra Huertas PA [Primary Care Provider] - Additional Instructions: Recommend go directly to the ER for further evaluation Call [facility] when you arrive prior to entering the [phone] We will contact you when the results of Coronavirus has returned - Billing Disposition and Condition Condition: CRITICAL Disposition: Home-Recommend to ED
[2019-12-03 10:18] LABS: Influenza A Molecular Negative (Negative); Influenza B Molecular Negative (Negative)
== END 2019-12-03 10:40 | disposition home health service (06) ==
LOC: UCCORT 09:05
DX: R06.02 Shortness of breath (principal); J44.9 Chronic obstructive pulmonary disease, unspecified; Z99.81 Dependence on supplemental oxygen; Z79.51 Long term (current) use of inhaled steroids; Z79.82 Long term (current) use of aspirin; Z88.7 Allergy status to serum and vaccine; Z88.8 Allergy status to other drugs, medicaments and biological substances; Z87.891 Personal history of nicotine dependence; Z20.828 Contact with and (suspected) exposure to other viral communicable diseases
CPT/HCPCS: 99212; G0463; U0002